=== PATIENT | male | born 1960 | race Caucasian/White ===

== ENCOUNTER 2023-12-09 20:37 | Inpatient (IN) | payer MEDICARE ==
[~2023-12-09] VITALS: Ht 180.3 cm; Wt 99.8 kg
[2023-12-09] MEDS ORDERED: SODIUM CHLORIDE FLUSH 10 ML SYR INJ PRN (21:15)
[2023-12-09] MEDS: ONDANSETRON HCL INJ 2MG/ML 2ML 2 MG/ML VIAL IV STA (21:31)
[2023-12-09] MEDS ORDERED: SODIUM CHLORIDE 0.9% 1000ML 0 ML ONE (21:35)
[2023-12-09] MEDS: KETOROLAC TROMETHAMINE 30 MG/ML VIAL IV STA (21:42)
[2023-12-09 21:54] LABS: BASOPHILS % 0.4 % (0.0-1.0); EOSINOPHILS # (AUTO) 0.1 (0.0-0.4); EOSINOPHILS % 2.4 % (0.0-6.0); HEMATOCRIT 44.4 % (38.2-49.6); HEMOGLOBIN 15.2 g/dL (14.0-18.0); LYMPHOCYTES # (AUTO) 0.8 (1.0-3.2); LYMPHOCYTES % 13.9 % (18.0-39.1); MEAN CORPUSCULAR HEMOGLOBIN 30.2 pg (28-32); MEAN CORPUSCULAR HGB CONC 34.2 g/dL (31-35); MEAN CORPUSCULAR VOLUME 88.1 fL (81-99); MONOCYTES # (AUTO) 0.2 (0.2-0.8); MONOCYTES % 3.8 % (4.4-11.3); NEUTROPHILS # (AUTO) 4.4 (2.1-6.9); NEUTROPHILS % 79.1 % (38.7-80.0); PLATELET COUNT 153 x10e3/uL (140-360); RED BLOOD COUNT 5.04 x10e6/uL (4.3-5.7); RED CELL DISTRIBUTION WIDTH 12.7 % (11.7-14.4); WHITE BLOOD COUNT 5.52 x10e3/uL (4.8-10.8)
[2023-12-09 22:08] LABS: ALBUMIN 4.3 g/dL (3.5-5.0); ALBUMIN/GLOBULIN RATIO 1.3 (0.8-2.0); ANION GAP 15.7 mmol/L (8-16); BILIRUBIN,TOTAL 0.8 mg/dL (0.2-1.2); CALCIUM 9.4 mg/dL (8.4-10.2); CREATININE, SERUM 1.21 mg/dL (0.72-1.25); POTASSIUM 3.7 mmol/L (3.5-5.1); TOTAL PROTEIN 7.5 g/dL (6.5-8.1)
[2023-12-09 23:07] LABS: CLARITY,URINE CLEAR (CLEAR); COLOR,URINE YELLOW (YELLOW); LEUKOCYTE ESTERASE ,URINE NEGATIVE (NEGATIVE); PH,URINE 7.5 (5 - 7)
[2023-12-09 23:08] LABS: BILIRUBIN,URINE NEGATIVE (NEGATIVE); GLUCOSE, URINE NEGATIVE (NEGATIVE); KETONES,URINE NEGATIVE (NEGATIVE); NITRITE,URINE NEGATIVE (NEGATIVE); PROTEIN,URINE DIPSTICK NEGATIVE (NEGATIVE); URINE UROBILINOGEN 0.2 mg/dL (0.2 - 1)
[2023-12-09 23:14] LABS: BACTERIA,URINE MANY /HPF; EPITHELIAL CELLS,URINE FEW /LPF; MUCUS,URINE FEW (RARE); RBC,URINE >50 /HPF (0-5)
[2023-12-09] MEDS ORDERED: CEFTRIAXONE 1 GM VIAL ONE (23:32)
[2023-12-09] MEDS ORDERED: SODIUM CHLORIDE 0.9% 1000ML 1,000 ML ONE (23:32)
[2023-12-09] MEDS: SODIUM CHLORIDE 0.9% 1000ML 1,000 ML IV SCH (23:44)
[2023-12-09 23:58] VITALS: PULSE 65; RESP 18; O2SAT 95
[2023-12-10] VITALS (10 sets, daily range): BP systolic 108–183; BP diastolic 86–95; PULSE 66–76; RESP 17–19; TEMP 98–98.4; O2SAT 96–100
[2023-12-10] MEDS ORDERED: POLYETHYLENE GLYCOL 3350 17 GM PACK PO PRN
[2023-12-10 01:05] LABS: MAGNESIUM 1.9 MG/DL (1.3-2.1); PHOSPHORUS 2.5 MG/DL (2.3-4.7)
[2023-12-10 01:26] LABS: FREE T4 (FREE THYROXINE) 0.92 ng/dL (0.8-1.8); THYROID STIMULATING HORMONE 4.551 uIU/mL (0.350-4.940)
[2023-12-10 01:42] LABS: CHOL/HDL RATIO 6.7 (3.9-4.7)
[2023-12-10] MEDS: HYDRALAZINE HCL 20 MG/ML VIAL IV PRN (01:52)
[2023-12-10] MEDS ORDERED: HYDRALAZINE HCL 20 MG/ML VIAL IV PRN (02:00)
[2023-12-10] MEDS ORDERED: PNEUMOCOCCAL VACCINE POLYVALENT 23 MCG/0.5 ML VIAL IM SCH (03:07)
[2023-12-10] MEDS ORDERED: INFLUENZA VIRUS VAC SPLIT INJ 0.5 ML SYR IM SCH (03:07)
[2023-12-10] MEDS: ONDANSETRON HCL INJ 2MG/ML 2ML 2 MG/ML VIAL IV PRN (03:13)
[2023-12-10] MEDS: Morphine 4mg INJECTION 4 MG/ML INJ IV PRN (03:14)
[2023-12-10] MEDS: FAMOTIDINE 20 MG/2 ML VIAL IV SCH (07:47)
[2023-12-10] MEDS: DOCUSATE SODIUM 100 MG CAP PO SCH (07:51)
[2023-12-10 08:18] LABS: BASOPHILS % 0.2 % (0.0-1.0); EOSINOPHILS # (AUTO) 0.1 (0.0-0.4); EOSINOPHILS % 0.9 % (0.0-6.0); HEMATOCRIT 45.7 % (38.2-49.6); HEMOGLOBIN 15.6 g/dL (14.0-18.0); LYMPHOCYTES % 11.9 % (18.0-39.1); MEAN CORPUSCULAR HEMOGLOBIN 30.3 pg (28-32); MEAN CORPUSCULAR HGB CONC 34.1 g/dL (31-35); MEAN CORPUSCULAR VOLUME 88.7 fL (81-99); MONOCYTES # (AUTO) 0.6 (0.2-0.8); MONOCYTES % 7.4 % (4.4-11.3); NEUTROPHILS # (AUTO) 6.5 (2.1-6.9); NEUTROPHILS % 79.5 % (38.7-80.0); PLATELET COUNT 161 x10e3/uL (140-360); RED BLOOD COUNT 5.15 x10e6/uL (4.3-5.7); RED CELL DISTRIBUTION WIDTH 12.8 % (11.7-14.4); WHITE BLOOD COUNT 8.13 x10e3/uL (4.8-10.8)
[2023-12-10 08:40] LABS: ANION GAP 12.6 mmol/L (8-16); CALCIUM 8.9 mg/dL (8.4-10.2); CREATININE, SERUM 1.23 mg/dL (0.72-1.25); POTASSIUM 4.6 mmol/L (3.5-5.1)
[2023-12-11] VITALS (9 sets, daily range): BP systolic 141–178; BP diastolic 60–102; PULSE 69–80; RESP 18–20; TEMP 97.7–98.6; O2SAT 96–99
[2023-12-11] MEDS: ACETAMINOPHEN 325 MG TAB PO PRN (01:19)
[2023-12-11 07:58] LABS: BASOPHILS % 0.3 % (0.0-1.0); EOSINOPHILS # (AUTO) 0.1 (0.0-0.4); EOSINOPHILS % 1.8 % (0.0-6.0); HEMATOCRIT 46.7 % (38.2-49.6); HEMOGLOBIN 15.6 g/dL (14.0-18.0); LYMPHOCYTES # (AUTO) 0.9 (1.0-3.2); LYMPHOCYTES % 10.8 % (18.0-39.1); MEAN CORPUSCULAR HEMOGLOBIN 30.1 pg (28-32); MEAN CORPUSCULAR HGB CONC 33.4 g/dL (31-35); MEAN CORPUSCULAR VOLUME 90.2 fL (81-99); MONOCYTES # (AUTO) 0.7 (0.2-0.8); MONOCYTES % 8.2 % (4.4-11.3); NEUTROPHILS # (AUTO) 6.2 (2.1-6.9); NEUTROPHILS % 78.5 % (38.7-80.0); PLATELET COUNT 143 x10e3/uL (140-360); RED BLOOD COUNT 5.18 x10e6/uL (4.3-5.7); RED CELL DISTRIBUTION WIDTH 12.8 % (11.7-14.4)
[2023-12-11 08:15] LABS: ANION GAP 14.9 mmol/L (8-16); CALCIUM 8.8 mg/dL (8.4-10.2); CREATININE, SERUM 1.48 mg/dL (0.72-1.25); POTASSIUM 4.9 mmol/L (3.5-5.1)
[2023-12-11] MEDS: AMLODIPINE BESYLATE 5 MG TAB PO ONE (12:51)
[2023-12-11] MEDS ORDERED: ACETAMIN/BUTALBITAL/CAFFEINE TAB PO PRN (18:45)
[2023-12-11] MEDS: ACETAMIN/BUTALBITAL/CAFFEINE TAB PO ONE (19:39)
[2023-12-12] VITALS: BP 126/85; PULSE 76; RESP 20; TEMP 97.9; O2SAT 100
[2023-12-12 04:00] VITALS: BP 152/83; PULSE 74; RESP 20; TEMP 98.5; O2SAT 99
[2023-12-12 05:47] LABS: ANION GAP 14.6 mmol/L (8-16); CALCIUM 8.7 mg/dL (8.4-10.2); CREATININE, SERUM 1.19 mg/dL (0.72-1.25); POTASSIUM 4.6 mmol/L (3.5-5.1)
[2023-12-12 07:46] VITALS: BP 141/74; PULSE 73; RESP 20; TEMP 97.8; O2SAT 99
[2023-12-12] MEDS ORDERED: AMLODIPINE BESYLATE 5 MG TAB PO SCH (09:00)
[2023-12-12] MEDS ORDERED: VITAMIN B PLUS PO (13:23)
== END 2023-12-12 08:25 | disposition home or self-care (01) | DRG 694 ==
LOC: ER 20:51 → ERHOLD 23:24 → MED/SURG 12-10 02:40
PROVIDERS: ADMIT Internal Medicine; ATTEND Internal Medicine
DX: N13.2 Hydronephrosis with renal and ureteral calculous obstruction (principal); K76.0 Fatty (change of) liver, not elsewhere classified; E78.1 Pure hyperglyceridemia; E78.5 Hyperlipidemia, unspecified; E66.9 Obesity, unspecified; Z68.30 Body mass index [BMI] 30.0-30.9, adult; I10 Essential (primary) hypertension; R31.29 Other microscopic hematuria
CPT/HCPCS: 36415; 74018; 74176; 80048; 80053; 80061; 81001; 83036; 83735; 84100; 84439; 84443; 85025; 87086; 94799; 96361; 99284; J0360; J0696; J1885; J2270; J2405; J7030

== ENCOUNTER → 2023-12-13 | Day surgery (SDC) | payer MEDICARE ==
[~2023-12-13] MED LIST: ACETAMINOPHEN 1000 MG/100 ML 100 ML IV ONE; FENTANYL CITRATE/PF 100MCG/2 ML INJ ONE; IOPAMIDOL 610MG/1ML 300 MG/ML VIAL IV ONE; VITAMIN B PLUS PO
[2023-12-13] MEDS: LACTATED RINGER'S 1,000 ML ONE (06:11)
[2023-12-13] MEDS: CEFTRIAXONE 1 GM VIAL ONE (06:11)
[2023-12-13 08:40] VITALS: BP 142/78; PULSE 81; RESP 16; O2SAT 97
== END | disposition home or self-care (01) ==
LOC: OR 05:05
PROVIDERS: ATTEND Urology
DX: N20.1 Calculus of ureter (principal); E66.9 Obesity, unspecified; G43.909 Migraine, unspecified, not intractable, without status migrainosus
CPT/HCPCS: 50590; 71046; 93005; J0131; J0696; J3010; J7121